=== PATIENT | female | born 1945 | race Caucasian/White ===

== ENCOUNTER 2019-07-19 14:09 | Inpatient (IN) | payer MEDICARE, OTHER ==
[~2019-07-19] VITALS: Ht 162.6 cm; Wt 85.3 kg
[2019-07-19] MEDS ORDERED: ONDANSETRON HCL 4MG/2ML INJ IV STA ×2 (15:26→21:17)
[2019-07-19] MEDS ORDERED: SODIUM CHLORIDE 0.9% 1,000 ML IV ONE (15:26)
[2019-07-19 15:45] LABS: CHLORIDE 109 mEq/L (98-107); CLARITY URINE CLEAR (CLEAR); COLOR URINE YELLOW (YELLOW); KETONES URINE NEGATIVE (NEGATIVE); LEUKOCYTE ESTERASE URINE NEGATIVE (NEGATIVE); NITRITE URINE NEGATIVE (NEGATIVE); OCCULT BLOOD URINE NEGATIVE (NEGATIVE); PH URINE 5.5 (4.5-8.0); PROTEIN URINE NEGATIVE (NEGATIVE); SPECIFIC GRAVITY URINE 1.024 (1.005-1.030); UROBILINOGEN URINE 0.2 E.U./dL (0.2-1.0)
[2019-07-19 15:47] LABS: ETHANOL BLOOD < 10 mg/dL
[2019-07-19 15:50] LABS: BASOPHILS % 0.1 % (0.0-2.0); EOSINOPHILS % 0.1 % (0.0-5.0); HEMATOCRIT. 38.9 % (36.0-48.0); HEMOGLOBIN. 13.3 g/dL (12.0-16.0); LYMPHOCYTES % 7.1 % (20.0-50.0); MEAN CORPUSCULAR HEMOGLOBIN 30.3 pg (28.0-32.0); MEAN CORPUSCULAR VOLUME 88.3 fL (81.0-99.0); MEAN PLATELET VOLUME 9.9 fl (7.4-10.4); MONOCYTES % 3.9 % (2.0-8.0); NEUTROPHILS % 88.8 % (40.0-76.0); PLATELET 193 x1000/uL (130-400); RED CELL DISTRIBUTION WIDTH 14.5 % (11.6-14.6)
[2019-07-19 15:53] LABS: CREATINE KINASE 155 IU/L (26-192)
[2019-07-19 15:56] LABS: *AMPHETAMINES SCREEN URINE NEGATIVE (NEGATIVE); *BARBITURATES SCREEN URINE NEGATIVE (NEGATIVE); *BENZODIAZEPINES SCREEN URINE NEGATIVE (NEGATIVE); *COCAINE SCREEN URINE NEGATIVE (NEGATIVE); METHADONE URINE SCREEN NEGATIVE (NEGATIVE); OPIATES URINE SCREEN NEGATIVE (NEGATIVE)
[2019-07-19 15:57] LABS: CANNABINOID URINE SCREEN NEGATIVE (NEGATIVE); PHENCYCLIDINE URINE SCREEN NEGATIVE (NEGATIVE)
[2019-07-19 20:45] LABS: CHLORIDE 110 mEq/L (98-107)
[2019-07-20 08:13] LABS: HEMATOCRIT 36.7 % (36.0-48.0); HEMOGLOBIN 12.8 g/dL (12.0-16.0); MEAN CORPUSCULAR HEMOGLOBIN 30.4 pg (28.0-32.0); MEAN CORPUSCULAR VOLUME 87.5 fL (81.0-99.0); PLATELET 179 x1000/uL (130-400); RED BLOOD CELL COUNT 4.19 mill/uL (4.2-5.4); RED CELL DISTRIBUTION WIDTH 14.5 % (11.6-14.6)
[2019-07-20 08:20] LABS: CHLORIDE 111 mEq/L (98-107)
[2019-07-20 16:12] LABS: CHLORIDE 112 mEq/L (98-107)
[2019-07-20] MEDS ORDERED: CLONIDINE 0.1MG TABLET PO PRN (16:30)
[2019-07-20] MEDS ORDERED: DIPHENHYDRAMINE 50MG/ML VIAL IV PRN (16:30)
[2019-07-20] MEDS ORDERED: ONDANSETRON HCL 4MG/2ML INJ IV PRN (16:30)
[2019-07-20] MEDS ORDERED: IPRATROPIUM/ALBUTEROL 0.5-3(2.5)MG/3ML NEB HHN PRN (16:30)
[2019-07-20 16:46] LABS: PHOSPHORUS 2.9 mg/dL (2.5-4.9)
[2019-07-20] MEDS: SODIUM CHLORIDE 0.9% 1,000 ML IV SCH (16:56)
[2019-07-20 19:45] VITALS: BP 161/73
[2019-07-20 20:00] VITALS: BP 150/72
[2019-07-20] MEDS ORDERED: ACETYLCYSTEINE IV NR ×2 (20:00→21:00)
[2019-07-20] MEDS ORDERED: WATER IV NR ×2 (20:00→21:00)
[2019-07-20] MEDS ORDERED: DEXT 5% IV NR ×2 (20:00→21:00)
[2019-07-20] MEDS ORDERED: DEXTROSE 50% WATER 50ML SYRINGE IV PRN (20:00)
[2019-07-20 20:11] VITALS: BP 150/72
[2019-07-20] MEDS: ENOXAPARIN 40MG/0.4ML SYR SUBCUT SCH (20:40)
[2019-07-20] MEDS: INSULIN LISPRO 100 UNITS/ML SUBCUT SCH (20:40)
[2019-07-20] MEDS: BLOOD SUGAR DIAGNOSTIC STRIP TEST SCH (20:40)
[2019-07-21] MEDS ORDERED: SENN-155 PO
[2019-07-21] MEDS ORDERED: QUET300T2 PO
[2019-07-21] MEDS ORDERED: ACET-2708 PO
[2019-07-21] MEDS ORDERED: LORA-250 PO
[2019-07-21] MEDS ORDERED: SIMV10TA2 PO
[2019-07-21] MEDS ORDERED: QUET50TA PO
[2019-07-21] MEDS ORDERED: DOCU-286 PO
[2019-07-21] MEDS ORDERED: TAMS-11 PO
[2019-07-21 00:32] VITALS: BP 174/87
[2019-07-21] MEDS ORDERED: WATER IV ONE (01:00)
[2019-07-21] MEDS ORDERED: DEXTROSE 5% IV ONE (01:00)
[2019-07-21] MEDS ORDERED: ACETYLCYSTEINE IV ONE (01:00)
[2019-07-21 04:00] VITALS: BP 142/76
[2019-07-21] MEDS: SODIUM CHLORIDE 0.9% 1,000 ML IV SCH ×2 (04:48→16:47)
[2019-07-21 06:09] LABS: BASOPHILS % 0.4 % (0.0-2.0); EOSINOPHILS % 0.6 % (0.0-5.0); HEMATOCRIT. 35.4 % (36.0-48.0); HEMOGLOBIN. 12.3 g/dL (12.0-16.0); LYMPHOCYTES % 8.5 % (20.0-50.0); MEAN CORPUSCULAR HEMOGLOBIN 30.3 pg (28.0-32.0); MEAN CORPUSCULAR VOLUME 87.3 fL (81.0-99.0); MEAN PLATELET VOLUME 9.7 fl (7.4-10.4); MONOCYTES % 7.5 % (2.0-8.0); PLATELET 175 x1000/uL (130-400); RED BLOOD CELL COUNT 4.05 mill/uL (4.2-5.4); RED CELL DISTRIBUTION WIDTH 14.7 % (11.6-14.6)
[2019-07-21 08:00] VITALS: BP 130/74
[2019-07-21] MEDS: INSULIN LISPRO 100 UNITS/ML SUBCUT SCH ×4 (08:10→20:59)
[2019-07-21] MEDS: BLOOD SUGAR DIAGNOSTIC STRIP TEST SCH ×4 (08:19→19:58)
[2019-07-21] MEDS ORDERED: POTASSIUM CHLORIDE 20MEQ TABLET SR PO NR (11:30)
[2019-07-21 12:00] VITALS: BP 144/73
[2019-07-21] MEDS ORDERED: KCL 20MEQ/100ML PREMIX 100 ML IV NR (12:00)
[2019-07-21 13:19] LABS: HEMATOCRIT. 36.6 % (36.0-48.0); HEMOGLOBIN. 12.7 g/dL (12.0-16.0); MEAN CORPUSCULAR HEMOGLOBIN 30.3 pg (28.0-32.0); MEAN CORPUSCULAR VOLUME 87.6 fL (81.0-99.0); MEAN PLATELET VOLUME 9.8 fl (7.4-10.4); PLATELET 180 x1000/uL (130-400); RED BLOOD CELL COUNT 4.18 mill/uL (4.2-5.4); RED CELL DISTRIBUTION WIDTH 15.2 % (11.6-14.6)
[2019-07-21 13:33] LABS: CHLORIDE 109 mEq/L (98-107)
[2019-07-21 13:34] LABS: PLATELET ESTIMATE NORMAL
[2019-07-21 16:00] VITALS: BP 142/72
[2019-07-21] MEDS: IBUPROFEN 400MG TABLET PO PRN ×2 (16:46→23:45)
[2019-07-21 19:27] VITALS: BP 134/60
[2019-07-21] MEDS: ENOXAPARIN 40MG/0.4ML SYR SUBCUT SCH ×2 (20:00→20:56)
[2019-07-21] MEDS: TAMSULOSIN HCL 0.4MG SR CAPSULE PO SCH (20:56)
[2019-07-21] MEDS: ATORVASTATIN CALCIUM 10MG TABLET PO SCH (21:04)
[2019-07-22] VITALS: BP 138/78
[2019-07-22 04:00] VITALS: BP 130/66
[2019-07-22] MEDS: SODIUM CHLORIDE 0.9% 1,000 ML IV SCH ×2 (05:44→18:09)
[2019-07-22] MEDS: BLOOD SUGAR DIAGNOSTIC STRIP TEST SCH ×5 (06:02→20:01)
[2019-07-22] MEDS: INSULIN LISPRO 100 UNITS/ML SUBCUT SCH ×4 (06:03→20:01)
[2019-07-22] MEDS: IBUPROFEN 400MG TABLET PO PRN ×3 (06:49→18:32)
[2019-07-22 08:00] VITALS: BP 143/71
[2019-07-22 12:00] VITALS: BP 134/79
[2019-07-22 17:00] VITALS: BP 166/66
[2019-07-22 17:08] LABS: EOSINOPHILS % 4.2 % (0.0-5.0); HEMATOCRIT. 32.4 % (36.0-48.0); HEMOGLOBIN. 11.2 g/dL (12.0-16.0); LYMPHOCYTES % 14.6 % (20.0-50.0); MEAN CORPUSCULAR HEMOGLOBIN 30.5 pg (28.0-32.0); MEAN PLATELET VOLUME 9.7 fl (7.4-10.4); MONOCYTES % 7.6 % (2.0-8.0); NEUTROPHILS % 72.6 % (40.0-76.0); PLATELET 194 x1000/uL (130-400); RED BLOOD CELL COUNT 3.69 mill/uL (4.2-5.4); RED CELL DISTRIBUTION WIDTH 14.8 % (11.6-14.6)
[2019-07-22 17:10] LABS: CHLORIDE 114 mEq/L (98-107)
[2019-07-22] MEDS ORDERED: DOCUSATE SODIUM 100MG CAPSULE PO SCH (19:30)
[2019-07-22 20:00] VITALS: BP 138/82
[2019-07-22] MEDS: TAMSULOSIN HCL 0.4MG SR CAPSULE PO SCH (20:00)
[2019-07-22] MEDS: ENOXAPARIN 40MG/0.4ML SYR SUBCUT SCH (20:00)
[2019-07-22] MEDS: ATORVASTATIN CALCIUM 10MG TABLET PO SCH (20:01)
[2019-07-23] VITALS: BP 149/66
[2019-07-23] MEDS: IBUPROFEN 400MG TABLET PO PRN ×4 (00:54→23:15)
[2019-07-23 04:00] VITALS: BP 133/70
[2019-07-23] MEDS: SODIUM CHLORIDE 0.9% 1,000 ML IV SCH ×2 (05:50→18:27)
[2019-07-23] MEDS: BLOOD SUGAR DIAGNOSTIC STRIP TEST SCH ×4 (06:44→20:19)
[2019-07-23 07:15] LABS: BASOPHILS % 1.1 % (0.0-2.0); CHLORIDE 114 mEq/L (98-107); EOSINOPHILS % 6.6 % (0.0-5.0); HEMATOCRIT. 32.5 % (36.0-48.0); HEMOGLOBIN. 11.3 g/dL (12.0-16.0); LYMPHOCYTES % 16.5 % (20.0-50.0); MEAN CORPUSCULAR HEMOGLOBIN 30.4 pg (28.0-32.0); MEAN CORPUSCULAR VOLUME 87.4 fL (81.0-99.0); MEAN PLATELET VOLUME 9.5 fl (7.4-10.4); MONOCYTES % 8.9 % (2.0-8.0); NEUTROPHILS % 66.9 % (40.0-76.0); PLATELET 205 x1000/uL (130-400); RED BLOOD CELL COUNT 3.72 mill/uL (4.2-5.4); RED CELL DISTRIBUTION WIDTH 14.6 % (11.6-14.6)
[2019-07-23 07:21] LABS: PHOSPHORUS 2.3 mg/dL (2.5-4.9)
[2019-07-23 08:00] VITALS: BP 124/58
[2019-07-23] MEDS: INSULIN LISPRO 100 UNITS/ML SUBCUT SCH ×4 (08:10→20:19)
[2019-07-23] MEDS: DOCUSATE SODIUM 100MG CAPSULE PO SCH ×2 (08:15→16:06)
[2019-07-23 12:00] VITALS: BP 137/64
[2019-07-23 16:00] VITALS: BP 151/66
[2019-07-23] MEDS ORDERED: POTASSIUM CHLORIDE 20MEQ TABLET SR PO NR (16:00)
[2019-07-23] MEDS ORDERED: POLYETHYLENE GLYCOL 3350 (17GM) 1 DOSE PACK PO NR (17:00)
[2019-07-23 20:00] VITALS: BP 148/67
[2019-07-23] MEDS: TAMSULOSIN HCL 0.4MG SR CAPSULE PO SCH (20:18)
[2019-07-23] MEDS: ATORVASTATIN CALCIUM 10MG TABLET PO SCH (20:18)
[2019-07-23] MEDS: ENOXAPARIN 40MG/0.4ML SYR SUBCUT SCH (20:18)
[2019-07-24] VITALS: BP 151/59
[2019-07-24 04:00] VITALS: BP 123/61
[2019-07-24] MEDS: IBUPROFEN 400MG TABLET PO PRN (05:56)
[2019-07-24 06:07] LABS: CHLORIDE 112 mEq/L (98-107)
[2019-07-24 06:20] LABS: BASOPHILS % 1.4 % (0.0-2.0); EOSINOPHILS % 7.1 % (0.0-5.0); HEMATOCRIT. 34.3 % (36.0-48.0); HEMOGLOBIN. 11.8 g/dL (12.0-16.0); LYMPHOCYTES % 21.2 % (20.0-50.0); MEAN CORPUSCULAR HEMOGLOBIN 30.3 pg (28.0-32.0); MEAN CORPUSCULAR VOLUME 87.8 fL (81.0-99.0); MEAN PLATELET VOLUME 9.1 fl (7.4-10.4); MONOCYTES % 10.4 % (2.0-8.0); NEUTROPHILS % 59.9 % (40.0-76.0); PLATELET 246 x1000/uL (130-400); RED BLOOD CELL COUNT 3.91 mill/uL (4.2-5.4); RED CELL DISTRIBUTION WIDTH 14.2 % (11.6-14.6)
[2019-07-24] MEDS: BLOOD SUGAR DIAGNOSTIC STRIP TEST SCH ×4 (07:02→20:17)
[2019-07-24] MEDS: SODIUM CHLORIDE 0.9% 1,000 ML IV SCH ×2 (07:48→20:35)
[2019-07-24] MEDS: INSULIN LISPRO 100 UNITS/ML SUBCUT SCH ×4 (07:50→20:18)
[2019-07-24 08:00] VITALS: BP 130/62
[2019-07-24] MEDS: DOCUSATE SODIUM 100MG CAPSULE PO SCH ×2 (09:36→17:00)
[2019-07-24 12:00] VITALS: BP 149/66
[2019-07-24 16:00] VITALS: BP 143/74
[2019-07-24 20:00] VITALS: BP 139/75
[2019-07-24] MEDS: ENOXAPARIN 40MG/0.4ML SYR SUBCUT SCH (20:00)
[2019-07-24] MEDS: TAMSULOSIN HCL 0.4MG SR CAPSULE PO SCH (20:21)
[2019-07-24] MEDS: ATORVASTATIN CALCIUM 10MG TABLET PO SCH (20:22)
[2019-07-25] VITALS: BP 126/72
[2019-07-25 04:00] VITALS: BP 131/70
[2019-07-25] MEDS: BLOOD SUGAR DIAGNOSTIC STRIP TEST SCH ×4 (06:41→21:00)
[2019-07-25] MEDS: INSULIN LISPRO 100 UNITS/ML SUBCUT SCH ×4 (06:41→21:00)
[2019-07-25] MEDS: DOCUSATE SODIUM 100MG CAPSULE PO SCH ×2 (08:11→17:00)
[2019-07-25 12:00] VITALS: BP 135/70
[2019-07-25 16:00] VITALS: BP 138/75
[2019-07-25 19:37] VITALS: BP 156/86
[2019-07-25 20:00] VITALS: BP 156/86
[2019-07-25] MEDS: ENOXAPARIN 40MG/0.4ML SYR SUBCUT SCH (20:00)
[2019-07-25] MEDS ORDERED: LORAZEPAM 0.5MG TABLET PO PRN (21:00)
[2019-07-25] MEDS: TAMSULOSIN HCL 0.4MG SR CAPSULE PO SCH (21:00)
[2019-07-25] MEDS: ATORVASTATIN CALCIUM 10MG TABLET PO SCH (21:00)
== END 2019-07-25 22:40 | DRG 917 ==
LOC: ER 14:09 → 7WST 07-20 15:37 → ENRESERV 07-20 18:26 → 6EST 07-23 21:10
PROVIDERS: ADMIT Internal Medicine; ATTEND Internal Medicine
DX: T39.1X2A Poisoning by 4-Aminophenol derivatives, intentional self-harm, initial encounter (principal); G92 Toxic encephalopathy; E87.6 Hypokalemia; E78.5 Hyperlipidemia, unspecified; Z96.641 Presence of right artificial hip joint; R73.9 Hyperglycemia, unspecified; F31.9 Bipolar disorder, unspecified; Z78.1 Physical restraint status; Z91.5 Personal history of self-harm; Y92.89 Other specified places as the place of occurrence of the external cause
CPT/HCPCS: 36415; 71045; 80048; 80053; 80061; 80076; 80305; 80307; 80320; 80329; 81003; 82140; 82248; 82550; 82962; 83036; 83735; 84100; 84443; 85025; 85027; 93005; 93970; 96361; 96374; 99285; J0132; J1200; J1650; J2405; J3480; J7030; J7060; J7070; G0480